=== PATIENT | male | born 1990 | race Caucasian/White ===

== ENCOUNTER 2017-07-16 04:15 | Emergency (ER) | payer OTHER ==
[~2017-07-16] VITALS: Ht 182.9 cm; Wt 82.7 kg
[~2017-07-16 04:15] MED LIST: NOCURR
[2017-07-16] MEDS ORDERED: BACITRACIN 0.9 GM PACKET OINTMENT TP ONE (04:30)
[2017-07-16] MEDS ORDERED: IBUPROFEN 600 MG TABLET PO ONE (05:00)
[2017-07-16 05:40] VITALS: BP 131/68
== END 2017-07-16 05:56 | disposition home or self-care (01) ==
LOC: EMS 04:16
DX: S80.211A Abrasion, right knee, initial encounter (principal); S50.311A Abrasion of right elbow, initial encounter; S00.81XA Abrasion of other part of head, initial encounter; W22.8XXA Striking against or struck by other objects, initial encounter; Y93.89 Activity, other specified; Y92.488 Other paved roadways as the place of occurrence of the external cause; Y99.8 Other external cause status
CPT/HCPCS: 99283